=== PATIENT | male | born 1940 | race Caucasian/White ===

== ENCOUNTER → 2016-09-25 | Day surgery (SDC) | payer MEDICARE ==
[~2016-09-25] MED LIST: ACETAMINOPHEN PO; ALBUTEROL MININEB NEB; ALBUTEROL17 GM INH; ASMANEX0.24 G1 INH; CELEXA PO; CLEOCIN PO; COUMADIN2.5 MG PO; DIAZEPAM PO; FLAGYL PO; HCTZ PO; HYTRIN PO; LEVAQUIN250 MG PO; NAPROXEN PO; NASONEX17 GM; NICOTINE T1 PATCH .2 TOP; OCEAN45 ML; POLYETHYLENE GLY1 GM PO; PRILOSEC PO; PROSCAR5 MG PO; ROBAXIN PO; SPIRIVA18 MCG INH; THEOPHYLLIN; ULTRAM PO; VIAGRA PO; VICODIN 5/500 T1 TAB PO; VOLTAREN100 GM TOP
--- NOTE | ~2016-09-25 | OR ---
Unit #: [id number] #: [id number] Patient: ANGELO RAMOS [id number] [address] [place], [place] [address] [id number] MR#: [id number] NAME: ANGELO RAMOS ROOM: Date of Procedure: 09/25/2016 Admission Date: 09/25/2016 Surgeon: Chan Calles M.D. : 1940 Attending Physician: Chan Calles M.D. [facility] OPERATIVE NOTE PROCEDURE PERFORMED Lumbar epidural steroid injection under x-ray guided needle placement PREOPERATIVE DIAGNOSES 1. Acute lumbar radiculitis. 2. Spinal stenosis, lumbosacral spine. 3. Multiple level degenerative joint disease, lumbosacral spine. 4. Degenerative disk disease, lumbosacral spine. INDICATIONS FOR PROCEDURE The patient presents today status post 2 previous lumbar approach epidural steroid injections occurring approximately 3 months ago for an acute radiculitis, which had failed to respond to conservative therapy. He states he got good results with approximately 80% to 100% relief for 8 to 10 weeks; however, over the course of the past 4 to 6 weeks, the patient began developing a return of his symptoms right-sided greater than left in a crescendo pattern, which has failed to respond to and/or broken through his usual ongoing conservative management. They have reached a point that they are impacting his activity of daily living and he presents today requesting an epidural steroid injection. After discussing risks and benefits of proceeding today with a lumbar approach epidural steroid injection following discussion of potential dual needle access technique, the patient agreed this would be the appropriate course of action. DESCRIPTION OF PROCEDURE He was then taken to the operating room, where he was prepped and draped in a sterile manner. Standard monitors were applied. He was sedated with no medications as he refused all forms of sedation. Lumbar epidural space was accessed at the L5-S1 level after negative attempts at L4-L5 using loss of resistance technique and x-ray guidance. Needle placement was confirmed with injection of 2 mL of Omnipaque. There was excellent superior and inferior flow at this L5-S1 needle placement. Therefore, we opted to use a single needle access point. The patient then received injectate containing 8 mL normal saline and 80 mg of methylprednisolone. He tolerated this procedure well. He was discharged home with followup instructions, which include an offer to return to this clinic as early as 02/05/2017 if we could be of further service to him. Dictated by... Chan Calles M.D. NKECHI/lucy Unit #: [id number] #: [id number] Patient: ANGELO RAMOS TD: 09/26/2016 05:39 JOB #: [id number] CC: Alex Layne M.D. [facility] OPERATIVE NOTE Page 1 of 1 X Panda Calles MD X PROCEDURE OPERATIVE NOTE
== END | disposition home or self-care (01) ==
LOC: CCSC 10:45
DX: M51.17 Intervertebral disc disorders with radiculopathy, lumbosacral region (principal); M48.07 Spinal stenosis, lumbosacral region; M47.27 Other spondylosis with radiculopathy, lumbosacral region
CPT/HCPCS: J1040; J2250